=== PATIENT | female | born 1985 | race Asian ===

== ENCOUNTER 2017-12-25 12:34 | Emergency (ER) | payer OTHER ==
[~2017-12-25] VITALS: Ht 162.6 cm; Wt 52.0 kg
[2017-12-25 13:09] LABS: COLOR,URINE STRAW (Yellow); GLUCOSE, URINE NEGATIVE (Neg); KETONES,URINE NEGATIVE (Neg); LEUKOCYTE ESTERASE ,URINE LARGE (Neg); NITRITES, URINE NEGATIVE (Neg); OCCULT BLOOD,URINE LARGE (Neg); PROTEIN,URINE NEGATIVE (Neg); UROBILINOGEN,URINE 0.2 E.U/dL (0.2-1.0)
[2017-12-25 13:10] LABS: URINE HCG NEGATIVE (NEG)
[2017-12-25 13:15] LABS: CLARITY,URINE SLIGHTLY CLOUDY (Clear); UA COLLECTION TYPE NON-SPECIFIED
[2017-12-25 13:17] LABS: BACTERIA,URINE FEW /HPF (Neg); SQUAMOUS EPITHELIAL CELL,UR FEW /LPF (FEW); WBC CLUMPS,URINE FEW /HPF (NEGATIVE); WBC,URINE 50-100 /HPF (0-4)
[2017-12-25] MEDS ORDERED: SULF1TAB48 PO (13:25)
[2017-12-25 13:39] VITALS: BP 112/68
== END 2017-12-25 13:41 | disposition home or self-care (01) ==
LOC: ER 12:34
DX: N39.0 Urinary tract infection, site not specified (principal)
CPT/HCPCS: 81001; 81025; 87077; 87088; 87186; 99284